=== PATIENT | female | born 1990 | race Caucasian/White ===

== ENCOUNTER 2024-04-09 14:36 | Emergency (ER) | payer MEDICAID, SELFPAY ==
[2024-04-09 14:37] VITALS: BP 119/80; PULSE 73; RESP 16; TEMP 36.3; O2SAT 99; BMI 22.2
[2024-04-09] MEDS: Morphine 4 MG/ML Syringe IV (15:45)
[2024-04-09] MEDS: 0.9% Normal Saline (1000mL) 1,000 ML 999 ML IV ×2 (15:45→16:58)
[2024-04-09] MEDS: Ondansetron 4 MG/2 ML Vial IV (15:45)
[2024-04-09 15:59] LABS: Color, Urine Yellow (Yellow); Glucose, Dipstick Normal (Normal); Internal QC Validated? YES +Cl - CLEAR BKGD; Ketone-Dipstick 50 mg/dl (Negative); Leukocyte Esterase-Dipstick 25 /ul (Negative); Nitrite-Dipstick Negative (Negative); Occult Blood-Urine Negative /ul (Negative); Protein-Dipstick Negative (Negative); Urine Bilirubin Dipstick Negative (Negative); Urine Clarity Clear (Clear); Urine Urobilinogen Normal (Normal); Urine pH 6.5 (5.0 - 8.0)
[2024-04-09 16:00] LABS: Absolute Lymphocyte Count 1.23 X10^3/uL (0.83-4.51); Absolute Neutrophil Count 6.9 X10^3/uL (2.0-7.7); Basophil# 0.01 X10^3/uL; Basophil% 0.1 % (0-1); Eosinophil# 0.03 X10^3/uL; Eosinophils% 0.4 % (0-5); Hematocrit 29.6 % (37-47); Hemoglobin 9.6 g/dL (12.0-15.0); Lymphocyte # 1.23 X10^3/ul (0.83-4.51); Lymphocyte % 14.4 % (19-41); Mean Corp Hgb Conc 32.4 g/dL (32-36); Mean Corpuscular Hgb 25.3 pg (27.0-32.0); Mean Corpuscular Volume 77.9 fL (81-99); Mean Platelet Vol. 8.8 fl (6.2-12.0); Monocyte# 0.41 X10^3/uL; Monocyte% 4.8 % (0-10); NRBC Flagged by Analyzer 0 % (0-5); Neutrophil # 6.85 X10^3/uL (2.7-7.7); Neutrophil % 79.9 % (47-70); Platelet Count 312 K/mm3 (150-450); RBC Distribution Width CV 15.9 % (11.6-14.6); White Blood Count 8.6 K/mm3 (4.4-11.0)
[2024-04-09 16:02] LABS: Pregnancy, Urine Positive Negative
[2024-04-09 16:14] LABS: Bacteria 2+ /hpf (None Seen); White Blood Cells 0-5 SEEN /hpf (0-5)
[2024-04-09 16:15] LABS: AST(SGOT) 13 U/L (15-37); Alanine Aminotransfer ALT/SGPT 15 U/L (13-56); Albumin, Serum 3.4 g/dL (3.2-5.0); Alkaline Phosphatase 61 U/L (45-117); Amorphous Sediment 1+; Anion Gap 6 (5-15); BUN 7 mg/dL (7-18); BUN/Creat Ratio 17.3 RATIO (10-20); Calcium,Total 8.9 mg/dL (8.5-10.1); Chloride 107 mmol/L (98-107); EST Glomerular Filtration Rate 194 mL/min (>60); Est Glom Filt Rate - Afr Amer 234 mL/min (>60); Estimated Creatinine Clearance 196.35 ml/min; Globulin 3.5 g/dL (2.2-4.2); Glucose 88 mg/dL (74-106); Lipase 41 U/L (13-75); Mucous, Urine 0 SEEN /hpf (<or=2+); Potassium 3.1 mmol/L (3.5-5.1); Protein, Total 6.9 g/dL (6.4-8.2); Red Blood Cells-Urine 0 SEEN /hpf (0-5); Sodium Level 137 mmol/L (136-145); Squamous Epithelial Cells - UA 0-5 SEEN /hpf (5-10)
[2024-04-09 16:37] VITALS: BP 111/82; PULSE 70; RESP 16; O2SAT 100
[2024-04-09] MEDS: Potassium Chloride Oral Tablet 20 MEQ 60 MEQ PO (16:50)
[2024-04-09] MEDS: Ceftriaxone 1 GM/50 ML BAG IV (16:50)
--- NOTE | 2024-04-09 16:56 | EDS_ITS ---
HPI History of Present Illness Chief Complaint: Abd Pain Narrative Narrative: Patient is a 33-year-old female who is 11 weeks who presents to the emergency department nausea vomiting epigastric pain for 3 days. Patient states that she has been feeling well and not been able to tolerate oral intake for the past 3 days prompting her to come here for evaluation management. Patient denies any vaginal bleeding, spotting, painful urination. Patient states that she has not had an appointment with her TRAFFIC ENGINEERING DIRECTOR yet but has 1 coming up in the near future. Patient denies any recent sick contacts and states that nobody else has similar symptoms. PFSH PFSH Home Medications ?Medication ?Instructions ?Recorded ?Last Taken ?Type cephalexin 500 mg capsule 500 mg PO BID 7 days #14 caps 04/09/24 Unknown Rx ondansetron 4 mg disintegrating 4 mg PO Q8H PRN nausea and 04/09/24 Unknown Rx tablet vomiting #20 tabs potassium chloride 20 mEq 40 meq (2 x 20 mEq) PO DAILY 5 04/09/24 Unknown Rx tablet,extended release days #10 tabs sertraline 50 mg tablet (Zoloft) 50 mg PO Q24H 04/09/24 Unknown History Allergy/AdvReac Type Severity Reaction Status Date / Time No Known Allergies Allergy Verified 04/09/24 15:40 Social History Smoking Status: Never smoker ROS ROS ED ROS Narrative Constitutional: Denies headaches, lightheadedness, dizziness, fevers, chills Eyes: Denies change in vision double vision blurry vision Cardiovascular: Denies chest pain or palpitations Respiratory: Denies cough wheezing shortness of breath Abdomen: Complains of some upper abdominal discomfort as well as nausea vomiting diarrhea denies any blood in stool dark tarry stools : Denies pain phonation, hematuria, polyuria, denies vaginal discharge, spotting Neurological: Denies numbness, weakness, tingling Skin: Denies rashes or lesions EXAM Physical Exam Narrative Exam Narrative: General: Patient lying in bed does appear to be uncomfortable on exam Head: Atraumatic, normocephalic Eyes: PERRL bilaterally, EOMI bilaterally, no conjunctival injection noted Neck: Soft, supple, trachea midline Cardiovascular: Regular rate and rhythm no murmurs gallops rubs noted Respiratory: Clear to auscultation bilaterally Abdomen: Soft, nondistended, no tenderness palpation, bowel sounds present x 4 Extremities: +5/5 strength noted in the bilateral upper and lower extremities Neurological: Patient follow commands that she is at [facility] year is 2023 Skin: Warm, dry, intact Const Vital Signs: 04/09/24 14:37 Temperature 97.4 F L Temperature Source Temporal Pulse Rate 73 Respiratory Rate 16 Blood Pressure 119/80 Blood Pressure Mean 93 Pulse Ox 99 Oxygen Delivery Method Room Air MDM MDM MDM Narrative Medical decision making narrative: Patient is a 33-year-old female who presents to the emergency department chief complaint of nausea vomiting not tolerating oral intake at 11 weeks . Patient will have a workup performed here on the differential diagnose includes but limited to UTI, pancreatitis, nausea in , viral gastroenteritis. Once workup is obtained reviewed she will be reevaluated. Patient given IV fluids, morphine, Zofran. Patient CBC reviewed showed no evidence of leukocytosis white blood count normal 8.6, hemoglobin is noted to be 9.6, platelet count normal at 312. Patient sodium was noted be normal 137 potassium was mildly low indicating hypokalemia at 3.1 she is given 60 mill equivalents of potassium replacement here in the emergency department, creatinine was noted to be 0.40. Patient's AST and ALT were 13 and 15 respectively, lipase normal at 41. Patient's urinalysis showed 50 ketones, negative nitrates 25 leukocyte esterase with 2+ bacteria and 0-5 white blood cells seen. Positive test. Once again the patient denies any vaginal spotting bleeding or vaginal discharge. She will be given a gram Rocephin and urine will be sent for culture. Patient will have a prescription sent for Keflex to the pharmacy as well as Zofran and potassium replacement for the next 5 days. On reevaluation of the patient she states that she is not feeling all that much better therefore she will be given another liter of IV fluids, sucralfate and Reglan. Patient case will be signed out to oncoming provider see their note for ultimate disposition details. Lab Data Labs: Laboratory Results - last 24 hr 04/09/24 15:47 WBC 8.6 RBC 3.80 L Hgb 9.6 L Hct 29.6 L MCV 77.9 L MCH 25.3 L MCHC 32.4 RDW Std Deviation 45.0 H RDW Coeff of Ewelina 15.9 H Plt Count 312 MPV 8.8 Immature Gran % (Auto) 0.400 Neut % (Auto) 79.9 H Lymph % (Auto) 14.4 L [place] % (Auto) 4.8 Eos % (Auto) 0.4 Baso % (Auto) 0.1 Absolute Neuts (auto) 6.9 Absolute Lymphs (auto) 1.23 Nucleated RBC % 0 Sodium 137 Potassium 3.1 L Chloride 107 Carbon Dioxide 24.0 Anion Gap 6 BUN 7 Creatinine 0.40 L Estim Creat Clear Calc 196.35 Est GFR (MDRD) Af Amer 234 Est GFR (MDRD) Non-Af 194 BUN/Creatinine Ratio 17.3 Glucose 88 Calcium 8.9 Total Bilirubin 0.40 AST 13 L ALT 15 Alkaline Phosphatase 61 Total Protein 6.9 Albumin 3.4 Globulin 3.5 Albumin/Globulin Ratio 1.0 Lipase 41 Urine Color Yellow Urine Clarity Clear Urine pH 6.5 Ur Specific [place] 1.010 Urine Protein Negative Urine Glucose (UA) Normal Urine Ketones 50 H Urine Occult Blood Negative Urine Nitrite Negative Urine Bilirubin Negative Urine Urobilinogen Normal Ur Leukocyte Esterase 25 H Urine RBC 0 SEEN Urine WBC 0-5 SEEN Ur Squamous Epith Cells 0-5 SEEN Amorphous Sediment 1+ Urine Bacteria 2+ Urine Mucus 0 SEEN Urine Test Positive H Discharge Plan Triage Chief Complaint: Abd Pain ED Provider: Arsen Bullard Dx/Rx/DC Orders Clinical Impression: Urinary tract infection, Nausea and vomiting in Prescriptions: New cephalexin 500 mg capsule 500 mg PO BID 7 Days Qty: 14 0RF ondansetron 4 mg tablet,disintegrating 4 mg PO Q8H PRN (Reason: nausea and vomiting) Qty: 20 0RF potassium chloride 20 mEq tablet extended release 40 meq PO DAILY 5 Days Qty: 10 0RF No Action sertraline [Zoloft] 50 mg tablet 50 mg PO Q24H Primary Care Provider: Care Physician,No Primary Referrals: Jake Lemon MD [Med Staff - Active Staff] - Care Physician,No Primary [Primary Care Provider] - Activity Restrictions/Additional Instructions: Follow-up with your TRAFFIC ENGINEERING DIRECTOR at your next scheduled appointment. Take antibiotics as prescribed. Follow-up on urine culture with them. Follow-up with your primary care physician as well. Return with worsening symptoms or any concerns. Take potassium replacement as prescribed 2. Print Language: Japanese Disposition Disposition: Home, Self Care
[2024-04-09] MEDS: Metoclopramide 10 MG/2 ML Vial 5 MG IV (16:57)
[2024-04-09] MEDS: Sucralfate 1 GM Tablet PO (17:23)
[2024-04-09 18:00] VITALS: BP 118/76; PULSE 78; RESP 16; O2SAT 98
--- NOTE | 2024-04-09 18:28 | ED.RN ---
per travis pedraza, i called down to the lab and talked to pedro in [facility] about the covid/flu/rsv that we have been waiting on results for an hour for. clarissa Saez from the lab said i'll get to it when i get to it. I have a big pile of crap to go through. RN notified. Lab stated it would be 20 mins before it was resulted. call was out at 1827
[2024-04-09] MEDS: Famotidine 200 MG/20 ML MDV 20 MG in 0.9% Normal Saline (Pres. free 8 ML 300 MG IV (18:41)
[2024-04-09 20:42] VITALS: BP 123/76; PULSE 76; RESP 18; TEMP 36.7; O2SAT 97
== END 2024-04-09 20:43 | disposition home or self-care (01) ==
PROVIDERS: Emergency Provider Emergency Medicine; Visit Provider Emergency Medicine
DX: O23.41 Unspecified infection of urinary tract in pregnancy, first trimester (principal); O21.9 Vomiting of pregnancy, unspecified; Z11.52 Encounter for screening for COVID-19; O99.281 Endocrine, nutritional and metabolic diseases complicating pregnancy, first trimester; E87.6 Hypokalemia; O99.611 Diseases of the digestive system complicating pregnancy, first trimester; R19.7 Diarrhea, unspecified; Z3A.11 11 weeks gestation of pregnancy; Z79.899 Other long term (current) drug therapy
CPT/HCPCS: 80053; 81001; 81025; 83690; 85025; 87086; 87088; 87631; 96361; 96365; 96367; 96375; 99283; A4216; J2405; J3490

== ENCOUNTER 2025-02-07 20:21 | Emergency (ER) | payer MEDICAID, SELFPAY ==
[2025-02-07 20:22] VITALS: BP 151/103; PULSE 90; RESP 16; TEMP 36.6; O2SAT 100; BMI 21.9
--- NOTE | 2025-02-07 20:43 | CT_ITS ---
PROCEDURE: PELVIS WITHOUT IV CONTRAST 02/07/2025 REASON FOR EXAM: LEFT GLUTEAL PAIN TECHNIQUE: Pelvis CT without contrast. One or more dose reduction techniques were used (e.g., Automated exposure control, adjustment of the mA and/or kV according to patient size, use of iterative reconstruction technique). COMPARISON: None FINDINGS: See impression CT/Pelvis without IV Contrast IMPRESSION: No acute osseous abnormality. 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 No significant hip arthropathy. No large joint eff usion or bursal fluid collection. Superficial soft tissues are within normal limits. Visualized pelvic contents are satisfac tory. No pelvic free fluid. Tampon in place. Reading Location: [facility]
--- NOTE | 2025-02-07 20:50 | ED.VIS.BACK ---
HPI History of Present Illness Chief Complaint: Back Informant: patient and spouse/S.O. Narrative Narrative: Presents with pain in her tailbone area radiating to the left gluteal last 3 days. Reported per nursing had epidural from her fourth child 4 months ago for the first time. At that time had pain going to the left hip. That resolved. She states this pain is different. She reported describe a pilonidal cyst in her tailbone when she was in college that needed draining. Pain is in that area. No fevers. She has been having night sweats for the last 2 weeks. No fevers. States pain worse with prolonged sitting. History of migraines receiving Botox injections from neurology with breakthrough medications. History of lupus not on any immunosuppressants. [facility] Medical History (Updated 02/07/25 @ 22:[address] Gibran Fishman DO) Vaginal delivery Home Medications ?Medication ?Instructions ?Recorded ?Last Taken ?Type cephalexin 500 mg capsule 500 mg PO Q6 #28 CAPSULES 04/09/24 Unknown Rx ondansetron 4 mg disintegrating 4 mg PO Q8H PRN nausea and 04/09/24 Unknown Rx tablet vomiting #20 tabs potassium chloride 20 mEq 40 meq (2 x 20 mEq) PO DAILY 5 04/09/24 Unknown Rx tablet,extended release days #10 tabs sertraline 50 mg tablet (Zoloft) 50 mg PO Q24H 04/09/24 Unknown History ibuprofen 600 mg tablet 600 mg PO Q6H PRN PRN pain #20 02/07/25 Unknown Rx TABLETS methylprednisolone 4 mg tablets in See Rx Instructions PO .COMPLEX 02/07/25 Unknown Rx a dose pack (Medrol (Guilherme)) #21 tabs Allergy/AdvReac Type Severity Reaction Status Date / Time No Known Allergies Allergy Verified 02/07/25 20:22 Social History (Updated 02/07/25 @ 21:03 by Claire Trevino) household members: significant other and children housing: house current occupational status: other Smoking Status: Never smoker ROS ROS ED Constitutional Constitutional ED: Reports sweats; Denies chills or fever(s) ENT ENT ED: Denies sore throat Cardiovascular Cardiovascular: Denies chest pain, leg edema, palpitations or racing heartbeat Respiratory/Chest Respiratory/Chest: Denies cough, dyspnea or dyspnea on exertion Gastrointestinal Gastrointestinal: Denies abdominal pain, diarrhea, nausea or vomiting Genitourinary Genitourinary ED: Denies dysuria, hematuria or urinary frequency Musculoskeletal Musculoskeletal: Reports other Details: Tailbone pain. ; Denies back pain, extremity pain or neck pain Integumentary Denies rash or wounds Neurologic Neurologic: Denies headache(s), paresthesias or weakness EXAM Physical Exam Const Vital Signs: 02/07/25 20:22 02/07/25 22:32 Temperature 98 F 97.5 F L Temperature Source Oral Pulse Rate 90 74 Respiratory Rate 16 16 Blood Pressure 151/103 H 140/65 H Blood Pressure Mean 119 90 Pulse Ox 100 100 Oxygen Delivery Method Room Air Positive well nourished and well developed General Appearance ED: well developed and NAD HEENT Reports moist mucous membranes normocephalic and atraumatic Eyes General Eye ED: Yes normal appearance of both eyes Neck full ROM Chest Wall Chest: Negative for tenderness Resp normal respiratory effort and normal air movement Effort and Inspection: symmetric chest movement; Negative for respiratory distress Cardio regular rate, regular rhythm and no murmurs Peripheral Pulses: pulses 2+ throughout GI normal to inspection, nondistended, normoactive bowel sounds and non-tender Palpation: Negative for guarding or rebound tenderness present Back/Spine Back/Spine Narrative: No midline tenderness thoracic or lumbar. Upper tailbone pilonidal area without tenderness without any fluctuance.. Some tenderness around perianal towards left gluteal region. Could not palpate any fluctuance no redness no indurations. No anal tenderness. Extremity normal to inspection General Extremety ED: Negative for edema or tenderness General Extremity: Negative for edema Neuro oriented x3 and no sensory deficits noted Sensorium / Orientation: awake and alert Skin no rashes or lesions noted and no wounds MDM MDM MDM Narrative Medical decision making narrative: Interventions / MDM: Differential diagnosis: Sacroiliitis Diagnosis considered but do not suspect: Abscess however CT negative. No cauda equina symptoms. My EKG interpretation: N/A Imaging independently reviewed and interpreted by myself: CT pelvis: No abscess noted. Sacroiliitis with superimposed osteitis on the left. External documents reviewed: N/A Test considered but not ordered:N/A ED course: Patient tenderness area perianal left gluteal area cannot palpate fluctuance or induration. Secondary to her discomfort in the area will establish IV for labs will get CT IV pelvis for further evaluation. IV Toradol for symptom control. Workup labs stable. CT scan no abscess. Sacroiliitis findings. Discussed with patient. She will be started on steroids with Medrol Dosepak. She continue NSAIDs. She is given follow-up pain management as symptoms seem to be in the SI area on reevaluation. She states pain worsened with prolonged sitting and standing. All questions were answered. Re-evaluation: stable Disposition discussed with patient/family/significant other: Patient Case discussed with consulting clinician: N/A This note was generated with [employer] dictation software. It may contain incorrect words, spelling, and punctuation that were not noted in checking the note before signing. Lab Data Attestation: I reviewed the patient's lab results. Labs: Laboratory Results - last 24 hr 02/07/25 20:51 WBC 6.5 RBC 3.93 L Hgb 11.3 L Hct 33.5 L MCV 85.2 MCH 28.8 MCHC 33.7 RDW Std Deviation 42.9 RDW Coeff of Ewelina 13.8 Plt Count 297 MPV 8.7 Immature Gran % (Auto) 0.200 Neut % (Auto) 60.2 Lymph % (Auto) 30.3 [place] % (Auto) 6.7 Eos % (Auto) 2.1 Baso % (Auto) 0.5 Absolute Neuts (auto) 3.9 Absolute Lymphs (auto) 1.98 Nucleated RBC % 0 Sodium 137 Potassium 3.8 Chloride 103 Carbon Dioxide 22.9 Anion Gap 11 BUN 14 Creatinine 0.67 L Estim Creat Clear Calc 116.14 Est GFR (MDRD) Non-Af 118 BUN/Creatinine Ratio 20.1 H Glucose 96 Calcium 9.1 Serum , Qual NEGATIVE Radiography Diagnostic Testing: Clinical Impression(s) from Imaging Studies Pelvis CT 02/07/25 20:43 IMPRESSION: No acute osseous abnormality. 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 No significant hip arthropathy. No large joint effusion or bursal fluid collection. Superficial soft tissues are within normal limits. Visualized pelvic contents are satisfactory. No pelvic free fluid. Tampon in place. [facility] Triage Chief Complaint: Back ED Provider: Gibran Fishman Dx/Rx/DC Orders Clinical Impression: Sacroiliac inflammation, Sacroiliac dysfunction Instructions: ED Sacroiliitis Prescriptions: New methylprednisolone [Medrol (Guilherme)] 4 mg tablets,dose pack See Rx Instructions .ROUTE .COMPLEX Qty: 21 0RF Rx Instructions: for 6 days ibuprofen 600 mg tablet 600 mg PO Q6H PRN PRN (Reason: pain) Qty: 20 0RF No Action sertraline [Zoloft] 50 mg tablet 50 mg PO Q24H ondansetron 4 mg tablet,disintegrating 4 mg PO Q8H PRN (Reason: nausea and vomiting) Qty: 20 0RF potassium chloride 20 mEq tablet extended release 40 meq PO DAILY 5 Days Qty: 10 0RF cephalexin 500 mg capsule 500 mg PO Q6 Qty: 28 0RF Primary Care Provider: Care Physician,No Primary Referrals: Mauri Alfred MD [[facility] Staff - Active Staff] - 1 Week Care Physician,No Primary [Primary Care Provider] - Activity Restrictions/Additional Instructions: CT pelvis negative for any abscess. Findings concerns for sacroiliitis more in the left side in the region of your pain. Take medication as prescribed. Follow-up with Dr. Alfred further outpatient treatment if not improving. Print Language: [place] Ver[place]an Disposition Disposition: Home, Self Care Discharge Date/Time: 02/07/25 22:33
[2025-02-07] MEDS: 0.9% Normal Saline (500mL Bag) 500 ML 1000 ML IV (21:00)
[2025-02-07] MEDS: Ketorolac 15 MG/ML Vial IV (21:00)
[2025-02-07 21:18] LABS: Absolute Lymphocyte Count 1.98 X10^3/uL (0.83-4.51); Absolute Neutrophil Count 3.9 X10^3/uL (2.0-7.7); Basophil# 0.03 X10^3/uL; Basophil% 0.5 % (0-1); Eosinophil# 0.14 X10^3/uL; Eosinophils% 2.1 % (0-5); Hematocrit 33.5 % (37-47); Hemoglobin 11.3 g/dL (12.0-15.0); Lymphocyte # 1.98 X10^3/ul (0.83-4.51); Lymphocyte % 30.3 % (19-41); Mean Corp Hgb Conc 33.7 g/dL (32-36); Mean Corpuscular Hgb 28.8 pg (27.0-32.0); Mean Corpuscular Volume 85.2 fL (81-99); Mean Platelet Vol. 8.7 fl (6.2-12.0); Monocyte# 0.44 X10^3/uL; Monocyte% 6.7 % (0-10); NRBC Flagged by Analyzer 0 % (0-5); Neutrophil # 3.94 X10^3/uL (2.7-7.7); Neutrophil % 60.2 % (47-70); Platelet Count 297 K/mm3 (150-450); RBC Distribution Width CV 13.8 % (11.6-14.6); RBC Distribution Width SD 42.9 fl (35.1-43.9); Red Blood Count 3.93 M/mm3 (4.2-5.4); White Blood Count 6.5 K/mm3 (4.4-11.0)
[2025-02-07 21:25] LABS: Internal QC Validated? YES +Cl - CLEAR BKGD; Pregnancy, Serum, hCG Quali. NEGATIVE Negative
[2025-02-07 21:42] LABS: Anion Gap 11 (5-15); BUN 14 mg/dL (4-19); BUN/Creat Ratio 20.1 RATIO (10-20); Calcium,Total 9.1 mg/dL (7.6-11.0); Carbon Dioxide 22.9 mmol/L (21.0-32.0); Chloride 103 mmol/L (98-108); Creatinine, Serum 0.67 mg/dL (0.70-1.20); EST Glomerular Filtration Rate 118 (>60); Estimated Creatinine Clearance 116.14 ml/min (50-250); Glucose 96 mg/dL (70-99); Potassium 3.8 mmol/L (3.3-5.1); Sodium Level 137 mmol/L (133-145)
[2025-02-07] MEDS: predniSONE 20 MG Tablet 60 MG PO (22:26)
[2025-02-07 22:32] VITALS: BP 140/65; PULSE 74; RESP 16; TEMP 36.4; O2SAT 100
== END 2025-02-07 22:33 | disposition home or self-care (01) ==
PROVIDERS: Emergency Provider Emergency Medicine; Visit Provider Emergency Medicine
DX: M46.1 Sacroiliitis, not elsewhere classified (principal); M53.3 Sacrococcygeal disorders, not elsewhere classified
CPT/HCPCS: 72192; 80048; 84703; 85025; 96361; 96374; 99283; A4216